=== PATIENT | male | born 1945 | race Caucasian/White ===

== ENCOUNTER 2020-10-20 18:46 | Observation (INO) ==
[2020-10-20] MEDS ORDERED: ASPIRIN 325 MG TABLET PO STA (19:12)
[2020-10-20 19:29] LABS: Basophils # 0.1 10*3/uL (0.0-0.2); Basophils % 0.7 % (0.0-0.8); Eosinophils # 0.3 10*3/uL (0.0-0.87); Eosinophils % 3.2 % (0.00-10.9); Hemoglobin 10.1 GM/DL (14.0-18.0); Immature Granulocytes % 0.5 %; Immature Granulocytes Absolute 0.05 #; Lymphocytes # 0.7 10*3/uL (1.4-4.0); Lymphocytes % 6.7 % (21.2-54.2); Mean Corpuscular HGB Conc 30.6 GM/DL (32-36); Mean Corpuscular Volume 76.6 FL (87-102); Mean Platelet Volume 9.9 FL (9.6-12.0); Monocytes % 5.4 % (1.7-12.7); Neutrophils % 83.5 % (38.7-73.9); Platelet Count 254 T/CUMM (130-400); Red Blood Count 4.31 MC/CUMM (3.8-5.5); White Blood Count 10.1 T/CUMM (4-12)
[2020-10-20 19:43] LABS: INR 1.3; PT Patient Result 13.9 SECS (9.8-11.9)
[2020-10-20 19:48] LABS: Albumin 3.4 G/DL (3.4-5.0); Bilirubin,Total 0.5 MG/DL (0.2-1.0); Calcium 8.8 MG/DL (8.5-10.1); Osmolality,Calculated 265.8 MOS/KG (273-304); Potassium 4.1 MMOL/L (3.5-5.1); Total Protein 6.9 G/DL (6.4-8.3); Troponin I 0.021 NG/ML (0.00-0.045)
[2020-10-20] MEDS ORDERED: ENOXAPARIN 100 MG/ML SYRINGE SUBCUT STA (20:01)
[2020-10-20] MEDS ORDERED: ONDANSETRON 4 MG/2 ML VIAL IV PRN (20:02)
[2020-10-20] MEDS ORDERED: MAGNESIUM SULF RIDER 2 GM in PREMIX 1 EACH IV PRN (20:02)
[2020-10-20] MEDS ORDERED: DOCUSATE SODIUM 100 MG CAPSULE PO PRN (20:02)
[2020-10-20] MEDS ORDERED: MAGNESIUM SULF RIDER 4 GM in PREMIX 1 EACH IV PRN (20:02)
[2020-10-20 22:18] LABS: Troponin I 0.257 NG/ML (0.00-0.045)
[2020-10-20] MEDS: SODIUM CHLORIDE 0.9% 1,000 ML IV SCH (22:25)
[2020-10-21 01:32] LABS: Troponin I 0.732 NG/ML (0.00-0.045)
[2020-10-21 06:39] LABS: Albumin 2.9 G/DL (3.4-5.0); Bilirubin,Total 1.4 MG/DL (0.2-1.0); Calcium 8.8 MG/DL (8.5-10.1); Osmolality,Calculated 267.2 MOS/KG (273-304); Potassium 3.9 MMOL/L (3.5-5.1); Total Protein 6.2 G/DL (6.4-8.3)
[2020-10-21 06:41] LABS: Troponin I 0.635 NG/ML (0.00-0.045)
[2020-10-21] MEDS ORDERED: hydroCHLOROthiazide 12.5 MG CAPSULE PO SCH (09:00)
[2020-10-21] MEDS ORDERED: ESCITALOPRAM 10 MG TABLET PO SCH (09:00)
[2020-10-21] MEDS ORDERED: PANTOPRAZOLE 40 MG TABLET PO SCH ×2 (09:00)
[2020-10-21] MEDS ORDERED: POTASSIUM CHLORIDE 20 MEQ TABLET PO SCH (09:00)
[2020-10-21] MEDS ORDERED: ASPIRIN EC 325 MG TABLET PO SCH (09:00)
[2020-10-21] MEDS ORDERED: LEVOTHYROXINE 75 MCG PO SCH (09:00)
[2020-10-21] MEDS ORDERED: ATORVASTATIN 80 MG TABLET PO SCH (09:00)
[2020-10-21] MEDS ORDERED: MAGNESIUM SULF RIDER 2 GM in PREMIX 1 EACH IV PRN (09:51)
[2020-10-21] MEDS ORDERED: POTASSIUM CHLORIDE RIDER 10 MEQ in PREMIX 1 EACH IV PRN (09:51)
[2020-10-21] MEDS: carvediloL 12.5 MG TABLET PO SCH ×2 (10:19→21:20)
[2020-10-21 11:53] LABS: % Iron Saturation 7.5 % (18-50); Ferritin 28.1 ng/ml (26-388)
[2020-10-21] MEDS: SODIUM CHLORIDE 0.9% 1,000 ML IV SCH (13:00)
[2020-10-21] MEDS ORDERED: diphenhydrAMINE CAP 25 MG CAPSULE PO ONE (13:00)
[2020-10-21] MEDS ORDERED: DIAZEPAM 5 MG TABLET PO ONE (13:00)
[2020-10-21] MEDS ORDERED: LIDOCAINE 1% 20 ML VIAL ONE (13:19)
[2020-10-21] MEDS ORDERED: fentaNYL 100 MCG/2 ML VIAL ONE (13:23)
[2020-10-21] MEDS ORDERED: MIDAZOLAM 2 MG/2 ML VIAL ONE (13:23)
[2020-10-21] MEDS ORDERED: DEXTROSE 50% 25 GM/50 ML VIAL IV PRN (14:44)
[2020-10-21] MEDS ORDERED: GLUCAGON 1 MG VIAL IM PRN (14:44)
[2020-10-21] MEDS ORDERED: diphenhydrAMINE CAP 25 MG CAPSULE PO PRN (15:30)
[2020-10-21] MEDS ORDERED: MAGNESIUM HYDROXIDE SUSP 30 ML UDCUP PO PRN (15:31)
[2020-10-21] MEDS ORDERED: ALPRAZolam 0.25 MG TABLET PO PRN (15:31)
[2020-10-21] MEDS: MAGNESIUM OXIDE 400 MG TABLET PO SCH ×3 (16:05→21:19)
[2020-10-22 05:29] VITALS: BP 108/65
[2020-10-22 05:50] LABS: Basophils # 0.1 10*3/uL (0.0-0.2); Basophils % 0.9 % (0.0-0.8); Eosinophils # 0.4 10*3/uL (0.0-0.87); Eosinophils % 4.5 % (0.00-10.9); Hematocrit 31.2 VOL% (42.0-52.0); Hemoglobin 9.8 GM/DL (14.0-18.0); Immature Granulocytes % 0.5 %; Immature Granulocytes Absolute 0.04 #; Lymphocytes # 1.3 10*3/uL (1.4-4.0); Lymphocytes % 16.3 % (21.2-54.2); Mean Corpuscular HGB Conc 31.4 GM/DL (32-36); Mean Corpuscular Volume 76.5 FL (87-102); Monocytes % 12.3 % (1.7-12.7); Neutrophils % 65.5 % (38.7-73.9); Platelet Count 244 T/CUMM (130-400); Red Blood Count 4.08 MC/CUMM (3.8-5.5); Red Cell Distribution Width 15.2 % (9.3-17.3); White Blood Count 8.1 T/CUMM (4-12)
[2020-10-22 06:15] LABS: Alanine Aminotransferase 10 U/L (16-61); Albumin 3.1 G/DL (3.4-5.0); Alkaline Phosphatase 76 U/L (45-117); Aspartate Amino Transferase 15 U/L (0-37); Blood Urea Nitrogen 8 MG/DL (7-18); Calcium 8.9 MG/DL (8.5-10.1); Carbon Dioxide 25 MMOL/L (21-32); Estimated Glom Filtration Rate 97 ML/MIN; Glucose 94 MG/DL (74-106); Osmolality,Calculated 265.2 MOS/KG (273-304); Potassium 3.9 MMOL/L (3.5-5.1); Sodium 134 MMOL/L (136-145); Total Protein 6.5 G/DL (6.4-8.3)
[2020-10-22 06:28] LABS: Troponin I 0.304 NG/ML (0.00-0.045)
[2020-10-22] MEDS ORDERED: ASPIRIN EC 81 MG TABLET PO SCH (09:00)
[2020-10-22] MEDS ORDERED: LOSARTAN 25 MG TABLET PO SCH (09:00)
[2020-10-22] MEDS ORDERED: FERROUS SULFATE 325 MG TABLET PO SCH (09:00)
== END 2020-10-22 07:45 | disposition home or self-care (01) ==
LOC: N.EDINP 18:46 → N.ED 18:46 → N.TELEN 21:16
PROVIDERS: ADMIT Internal Medicine Cardiovascular Disease; ATTEND Internal Medicine Cardiovascular Disease
PROC: CLCCHCL (ICD-10-PCS; 2020-10-21 15:15)

== ENCOUNTER 2020-10-22 12:39 | Observation (INO) ==
[2020-10-22] MEDS ORDERED: ONDANSETRON 4 MG/2 ML VIAL IV PRN (13:49)
[2020-10-22] MEDS ORDERED: MAGNESIUM SULF RIDER 2 GM in PREMIX 1 EACH IV PRN (13:49)
[2020-10-22] MEDS ORDERED: diphenhydrAMINE CAP 25 MG CAPSULE PO PRN (13:49)
[2020-10-22] MEDS ORDERED: MAGNESIUM SULF RIDER 4 GM in PREMIX 1 EACH IV PRN (13:49)
[2020-10-22] MEDS ORDERED: ZALEPLON 5 MG CAPSULE PO PRN (13:49)
[2020-10-22 14:20] LABS: Basophils # 0.1 10*3/uL (0.0-0.2); Basophils % 0.6 % (0.0-0.8); Eosinophils # 0.3 10*3/uL (0.0-0.87); Eosinophils % 3.5 % (0.00-10.9); Hematocrit 29.5 VOL% (42.0-52.0); Hemoglobin 9.1 GM/DL (14.0-18.0); Immature Granulocytes % 0.4 %; Immature Granulocytes Absolute 0.03 #; Lymphocytes # 0.9 10*3/uL (1.4-4.0); Lymphocytes % 11.4 % (21.2-54.2); Mean Corpuscular HGB Conc 30.8 GM/DL (32-36); Mean Corpuscular Volume 76.8 FL (87-102); Mean Platelet Volume 9.9 FL (9.6-12.0); Monocytes % 11.2 % (1.7-12.7); Neutrophils % 72.9 % (38.7-73.9); Platelet Count 212 T/CUMM (130-400); Red Blood Count 3.84 MC/CUMM (3.8-5.5); Red Cell Distribution Width 15.2 % (9.3-17.3); White Blood Count 7.8 T/CUMM (4-12)
[2020-10-22] MEDS ORDERED: THROMBIN TOPICAL (RECOMBINANT) 5,000 UNIT VIAL TOP ONE (14:36)
[2020-10-22 14:43] LABS: Albumin 3.1 G/DL (3.4-5.0); Bilirubin,Total 0.5 MG/DL (0.2-1.0); Calcium 8.5 MG/DL (8.5-10.1); Osmolality,Calculated 265.4 MOS/KG (273-304); Total Protein 6.5 G/DL (6.4-8.3)
[2020-10-22] MEDS: MAGNESIUM OXIDE 400 MG TABLET PO SCH ×2 (17:12→21:15)
[2020-10-22] MEDS ORDERED: guaiFENesin 200 MG/10 ML UDCUP PO PRN (20:34)
[2020-10-22] MEDS: carvediloL 12.5 MG TABLET PO SCH (21:15)
[2020-10-23 06:44] LABS: Basophils % 0.5 % (0.0-0.8); Eosinophils # 0.3 10*3/uL (0.0-0.87); Eosinophils % 3.2 % (0.00-10.9); Hematocrit 28.9 VOL% (42.0-52.0); Hemoglobin 9.2 GM/DL (14.0-18.0); Immature Granulocytes % 0.5 %; Immature Granulocytes Absolute 0.04 #; Lymphocytes # 0.8 10*3/uL (1.4-4.0); Lymphocytes % 9.6 % (21.2-54.2); Mean Corpuscular HGB Conc 31.8 GM/DL (32-36); Mean Corpuscular Volume 75.3 FL (87-102); Monocytes % 10.3 % (1.7-12.7); Neutrophils % 75.9 % (38.7-73.9); Platelet Count 211 T/CUMM (130-400); Red Blood Count 3.84 MC/CUMM (3.8-5.5); Red Cell Distribution Width 15.1 % (9.3-17.3); White Blood Count 8.3 T/CUMM (4-12)
[2020-10-23 07:04] LABS: Calcium 8.6 MG/DL (8.5-10.1); Osmolality,Calculated 267.1 MOS/KG (273-304); Potassium 3.8 MMOL/L (3.5-5.1)
[2020-10-23 07:05] LABS: Bilirubin,Total 0.6 MG/DL (0.2-1.0); Calcium 8.7 MG/DL (8.5-10.1); Osmolality,Calculated 267.1 MOS/KG (273-304); Potassium 3.8 MMOL/L (3.5-5.1); Total Protein 6.4 G/DL (6.4-8.3)
[2020-10-23] MEDS ORDERED: ASPIRIN EC 81 MG TABLET PO SCH (09:00)
[2020-10-23] MEDS ORDERED: ROSUVASTATIN 20 MG TABLET PO SCH (09:00)
[2020-10-23] MEDS ORDERED: ESCITALOPRAM 10 MG TABLET PO SCH (09:00)
[2020-10-23] MEDS ORDERED: LEVOTHYROXINE 75 MCG PO SCH (09:00)
[2020-10-23] MEDS ORDERED: POTASSIUM CHLORIDE 20 MEQ TABLET PO SCH (09:00)
[2020-10-23] MEDS ORDERED: hydroCHLOROthiazide 12.5 MG CAPSULE PO SCH (09:00)
[2020-10-23] MEDS ORDERED: PANTOPRAZOLE 40 MG TABLET PO SCH (09:00)
[2020-10-23] MEDS ORDERED: THROMBIN TOPICAL (RECOMBINANT) 5,000 UNIT VIAL TOP ONE (09:16)
[2020-10-23] MEDS: MAGNESIUM OXIDE 400 MG TABLET PO SCH ×2 (09:35→15:06)
[2020-10-23] MEDS: carvediloL 12.5 MG TABLET PO SCH (09:35)
[2020-10-23 12:58] VITALS: BP 116/74
== END 2020-10-23 16:05 | disposition home or self-care (01) ==
LOC: N.ED 12:39 → N.EDINP 12:39 → N.TELES 16:45
PROVIDERS: ADMIT Internal Medicine Cardiovascular Disease; ATTEND Internal Medicine Cardiovascular Disease